=== PATIENT | female | born 1950 | race African-American/Black ===

== ENCOUNTER → 2017-07-22 | Outpatient (CLI) | payer MEDICARE ==
--- NOTE | 2017-07-22 13:53 | US ---
EXAMINATION TYPE: US venous doppler duplex LE LT DATE OF EXAM: 07/22/2017 1:36 PM COMPARISON: NONE CLINICAL HISTORY: 66-year-old female M79.662 PAIN OF LT CALF, S80.12XA CONTUSION OF LT LOWER LEG. Juan Carlos stokes stated is unaware of trauma to left leg; sciatica per patient SIDE PERFORMED: Left TECHNIQUE: The lower extremity deep venous system is examined utilizing real time linear array sonog priyanka with graded compression, doppler sonography and color-flow sonography. FINDINGS: VESSELS IMAGED: Common Femoral Vein Deep Femoral Vein Greater Saphenous Vein * Femoral Vein Popliteal Vein Small Saphenous Vein * Proximal Calf Veins (* superficial vessels) Left Leg: Negative for DVT IMPRESSION: No evidence for DVT within the left lower extremity.
== END | disposition home or self-care (01) ==
LOC: RADUSWWP 13:12
PROVIDERS: ATTEND Family Medicine
DX: S80.12XA Contusion of left lower leg, initial encounter (principal); R58 Hemorrhage, not elsewhere classified

== ENCOUNTER → 2017-08-10 | Outpatient (CLI) | payer MEDICARE ==
--- NOTE | 2017-08-11 09:10 | MR ---
EXAMINATION TYPE: MR lumbar spine wo/w con DATE OF EXAM: 08/10/2017 COMPARISON: NONE HISTORY: 66-year-old female with low back pain and radiculopathy Technique: Multiplanar, multisequence images of the lumbar spine were obtained before and after admin istration of 7.5 mL intravenous Gadavist gadolinium contrast. FINDINGS: Vertebral body heights are maintained. No suspicious bone marrow replacement. Conus medullaris is normal. No prevertebral or paravertebral soft tissue abnormality seen. Hypertrophic facet arthropathy mid to lower lumbar spine with ligamentum flavum thickening. There is a grade 1 anterolisthesis at L3-L4. Variable mild disc desiccation throughout and bulging discs especially from L3 through S1 levels. At T12-L1, minimal disc bulge without canal or foraminal stenosis. At L1-L2, no significant canal or foraminal stenosis. At L2-L3, no significant canal or foraminal stenosis. At L3-L4, hypertrophic facet arthropathy with ligamentum flavum thickening, grade 1 anterolisthesis, diffuse disc bulge. Changes result in moderate spinal canal stenosis, minimal right common mild-to-mo derate left neuroforaminal stenosis. At L4-L5, there is diffuse disc bulge with ligamentum flavum thickening and facet arthropathy. Change s result in mild spinal canal stenosis with moderate left and yswu-zi-[id number] right neuroforaminal s tenosis. At L5-S1, there is facet degenerative change and bulging disc. No significant spinal canal stenosis. Changes result in mild left neuroforaminal stenosis with disc material appears to impinge the meagan ing left S1 nerve root, sagittal image 6 and axial images 2 and 3. No abnormal enhancement within the spinal canal. IMPRESSION: 1. Hypertrophic facet arthropathy mid to lower lumbar spine with grade 1 anterolisthesis at L3-L4. 2. Mild to moderate degenerative disc disease along with ligamentum flavum thickening especially from L3 through S1 levels. 3. Disc bulge compresses/impinges the traversing left S1 nerve root at the L5-S1 level. Correlate for appropriate radicular symptoms. Mild left neural foraminal stenosis at this level. 4. Bulging disc, grade 1 anterolisthesis, ligamentum flavum thickening, and facet arthropathy resulti ng in moderate spinal canal stenosis at L3-L4. Mild to moderate left neuroforaminal stenosis at this level. 5. At L4-L5, changes result in mild spinal canal stenosis with moderate left and otlf-bh-[id number] rig ht neuroforaminal stenosis.
== END | disposition home or self-care (01) ==
LOC: RADMRIMAIN 12:50
PROVIDERS: ATTEND Orthopaedic Surgery Orthopaedic Surgery of the Spine
DX: M48.061 Spinal stenosis, lumbar region without neurogenic claudication (principal); M99.73 Connective tissue and disc stenosis of intervertebral foramina of lumbar region; M43.16 Spondylolisthesis, lumbar region; M51.17 Intervertebral disc disorders with radiculopathy, lumbosacral region; M46.96 Unspecified inflammatory spondylopathy, lumbar region
CPT/HCPCS: 82565; 84520; 72158; 36415; A9581

== ENCOUNTER → 2018-10-18 | Outpatient (CLI) | payer MEDICARE ==
--- NOTE | 2018-10-18 11:32 | MM ---
Reason for exam: follow-up at short interval from prior study. Last mammogram was performed 5 months ago. History: Patient is postmenopausal, has history of breast cancer at age 60, has history of other cancer at age 42, and is nulliparous. Excisional biopsy of the right breast, May 2018. Mastectomy of the left breast, 2011. Physical Findings: Nurse did not find any significant physical abnormalities on exam. MG 3D Diag Mammo W/Cad RT CC and MLO view(s) were taken of the right breast. Prior study comparison: May 08, 2018, mammogram. April 26, 2018, mammogram. April 05, 2018, mammogram. April 18, 2017, mammogram. The breast tissue is heterogeneously dense. This may lower the sensitivity of mammography. Benign calcifications in the right breast. No suspicious abnormality. Post biopsy change on the right. These results were verbally communicated with the patient and result sheet given to the patient on 10/18/18. ASSESSMENT: Benign, BI-RAD 2 RECOMMENDATION: Routine screening mammogram of the right breast in 1 year.
== END | disposition home or self-care (01) ==
LOC: RADMAMWWP 10:21
PROVIDERS: ATTEND Surgery
DX: R92.8 Other abnormal and inconclusive findings on diagnostic imaging of breast (principal)
CPT/HCPCS: 77065; G0279; 77061

== ENCOUNTER → 2018-11-21 | Outpatient (CLI) | payer MEDICARE ==
--- NOTE | 2018-11-21 13:43 | BD ---
EXAMINATION TYPE: Axial Bone Density DATE OF EXAM: 11/21/2018 COMPARISON: NONE CLINICAL HISTORY: 68 YR OLD FEMALE....ICD-10 CODE: Z13.820 OSTEOPOROSIS Postmenopausal female. Height: 62.4 Weight: 184 FRAX RISK QUESTIONS: Secondary Osteoporosis: YES 3. Menopause before 45: YES RISK FACTORS HISTORY OF: Active: PT WORKS Postmenopausal woman: YES, ABOUT 46 YRS OLD...TOTAL HYST Take estrogen and/or progesterone medications: PREMARIN FOR ABOUT 3 YRS MEDICATIONS: Additional Medications: METFORMIN ,STATIN ,LISINOPRIL, MULTIVITAMIN, ASPIRIN Additional History: OVARIAN CA, NO CHEMO OR RADIATION,DIABETIC, CHOLESTEROL. EXAM MEASUREMENTS: Bone mineral densitometry was performed using the [employer] System. Bone mineral density as measured about the Lumbar spine is: ----- L1-L4(G/cm2): 1.184 T Score Values are as follows: ----- L1: -1.3 ----- L2: -1.3 ----- L3: 0.9 ----- L4: 1.4 ----- L1-L4: 0.0 Bone mineral density FIRST DEXA SCAN......BASELINE STUDY Bone mineral density about the R hip (g/cm2): 0.977 Bone mineral density about the L hip (g/cm2): 0.982 T Score values are as follows: -----R Neck: -0.3 -----L Neck: -0.5 -----R Total: -0.3 -----L Total: -0.2 Bone mineral density BASELINE STUDY FRAX%s: THERE IS A 3.1% CHANCE FOR A MAJOR OSTEOPOROTIC FX AND A 0.2% FOR HIP.....PROBABILITY FOR FX IN 10 YRS TIME IMPRESSION: Normal (Values between +1 and -1 indicate normal bone mass). Consider repeating this study in 5 year s or sooner if there is some new clinical indication. NOTE: T-SCORE=SD OF THE YOUNG ADULT MEAN.
== END | disposition home or self-care (01) ==
LOC: RADBDWWP 12:28
PROVIDERS: ATTEND Family Medicine
DX: M89.9 Disorder of bone, unspecified (principal)
CPT/HCPCS: 77080

== ENCOUNTER 2019-01-22 12:00 | Day surgery (SDC) | payer MEDICARE ==
[2019-01-18 17:43] VITALS: BMI 32.4
[~2019-01-22 12:00] MED LIST: LIDOCAINE 1% 20 ML VIAL (10MG/ML) FOR IV START INTRADERMA PRN
[2019-01-22 13:16] VITALS: RESP 16; TEMP 97.7
[2019-01-22] MEDS: LACTATED RINGERS 1,000 ML IV SCH ×2 (13:23→14:24)
[2019-01-22 13:26] LABS: Glucose,Whole Blood 104 mg/dL (75-99)
[2019-01-22] MEDS ORDERED: MIDAZOLAM 2 MG/2 ML VIAL ONE (14:24)
[2019-01-22] MEDS ORDERED: fentaNYL (PF) 50 MCG/ML 2 ML AMP ONE (14:24)
[2019-01-22] MEDS ORDERED: PROPOFOL 10 MG/ML 20 ML VIAL IV ONE (14:24)
--- NOTE | 2019-01-22 14:42 | P.GSHP ---
History of Present Illness H&P Date: 01/22/19 Chief Complaint: Colon polyp, screening 68-year-old female known to our service. Last colonoscopy 5 years ago. Patient with history of adenomatous polyps. No bowel related complaints. Personal history of breast cancer. Past Medical History Past Medical History: Cancer, Diabetes Mellitus, Hyperlipidemia, Hypertension Additional Past Medical History / Comment(s): hx. ovarian cancer early , left breast cancer 2011, hx. colon polyps History of Any Multi-Drug Resistant Organisms: None Reported Past Surgical History: Breast Surgery, Hysterectomy Additional Past Surgical History / Comment(s): left breast mastectomy, breast biopsies right, colonoscopy Past Anesthesia/Blood Transfusion Reactions: No Reported Reaction Smoking Status: Former smoker - Past Family History Mother Family Medical History: No Reported History Medications and Allergies Home Medications Medication Instructions Recorded Confirmed Type Aspirin 81 mg PO DAILY 01/18/19 01/18/19 History Lisinopril [Zestril] 20 mg PO DAILY 01/18/19 01/18/19 History Multivit-Min/FA/Lycopen/Lutein 1 each PO DAILY 01/18/19 01/18/19 History [Centrum Silver Tablet] Pravastatin Sodium [Pravachol] 20 mg PO DAILY 01/18/19 01/22/19 History metFORMIN HCL [Glucophage] 500 mg PO BID 01/18/19 01/22/19 History Allergies Allergy/AdvReac Type Severity Reaction Status Date / Time Sulfa (Sulfonamide Allergy Itching Verified 01/22/19 13:07 Antibiotics) Surgical - Exam Vital Signs Temp Pulse Resp BP Pulse Ox 97.7 F 83 16 163/81 99 01/22/19 13:10 01/22/19 13:10 01/22/19 13:10 01/22/19 13:10 01/22/19 13:10 Physical exam: General: Well-developed, well-nourished HEENT: Normocephalic, sclerae nonicteric Abdomen: Nontender, nondistended Extremities: No edema Neuro: Alert and oriented Results - Labs Abnormal Lab Results - Last 24 Hours (Table) 01/22/19 Range/Units 13:19 POC Glucose (mg/dL) 104 H (75-99) mg/dL Assessment and Plan (1) Colon cancer screening Narrative/Plan: Will proceed with colonoscopy at this time Current Visit: Yes Status: Acute Code(s): Z12.11 - ENCOUNTER FOR SCREENING FOR MALIGNANT NEOPLASM OF COLON SNOMED Code(s): 182482876
--- NOTE | 2019-01-22 14:55 | P.PCN ---
Date of Procedure: 01/22/19 Procedure(s) Performed: PREOPERATIVE DIAGNOSIS: Colon cancer screening POSTOPERATIVE DIAGNOSIS: Diverticulosis PROCEDURE: Colonoscopy ANESTHESIA: MAC SURGEON: Eliecer Rubio M.D. SPECIMENS: None ENDOSCOPIC PROCEDURE: The patient was placed on the endoscopy table in the left decubitus position. The Olympus colonoscope was inserted into the anus and passed under direct visualization to the base of the cecum. The appendiceal orifice was visualized. From that point the scope was slowly withdrawn inspe cting all surfaces carefully. There were no neoplastic inflammatory or polypoid lesions throughout the cecum, ascending, transverse, descending, sigmoid and rectum. There was mild left-sided diverticulosis noted. Digital rectal examination was normal. The patient was taken to the recovery room in stable condition per anesthesia guidelines. RECOMMENDATIONS: Increase fiber. Follow-up colonoscopy 5 years.
[2019-01-22 15:18] VITALS: BP 113/71; PULSE 71
== END 2019-01-22 15:34 | disposition home or self-care (01) ==
LOC: ORWHC2ENDO 12:00
PROVIDERS: ATTEND Surgery
DX: Z12.11 Encounter for screening for malignant neoplasm of colon (principal); K57.30 Diverticulosis of large intestine without perforation or abscess without bleeding; Z86.010 Personal history of colon polyps; I10 Essential (primary) hypertension; E78.5 Hyperlipidemia, unspecified; E11.9 Type 2 diabetes mellitus without complications; Z85.3 Personal history of malignant neoplasm of breast; Z85.43 Personal history of malignant neoplasm of ovary; Z90.12 Acquired absence of left breast and nipple; Z87.891 Personal history of nicotine dependence; Z79.84 Long term (current) use of oral hypoglycemic drugs; Z79.82 Long term (current) use of aspirin; Z79.899 Other long term (current) drug therapy; Z88.2 Allergy status to sulfonamides
CPT/HCPCS: J2250; J3010; J2704; G0105

== ENCOUNTER → 2020-06-30 | Outpatient (CLI) | payer MEDICARE ==
--- NOTE | 2020-06-30 13:51 | MM ---
Reason for exam: additional evaluation requested from prior study. Last mammogram was performed 1 year and 8 months ago. History: Patient is postmenopausal, has history of breast cancer at age 60, has history of ovarian cancer at age 42, and is nulliparous. Family history of breast cancer in sister and breast cancer in paternal aunt. Excisional biopsy of the right breast, May 2018. Mastectomy of the left breast, 2011. Physical Findings: Nurse did not find any significant physical abnormalities on exam. MG 3D Diag Mammo W/Cad RT CC and MLO view(s) were taken of the right breast. Prior study comparison: October 18, 2018, right breast MG 3d diag mammo w/cad RT. May 08, 2018, mammogram. The breast tissue is heterogeneously dense. This may lower the sensitivity of mammography. Post surgical distortion is unchanged, best seen on 3D images. No persisting abnormality on 3D images. Regional calcifications medial right breast are unchanged. No significant new findings when compared with previous films. These results were verbally communicated with the patient and result sheet given to the patient on 06/30/20. ASSESSMENT: Benign, BI-RAD 2 RECOMMENDATION: Follow-up diagnostic mammogram of the right breast in 1 year.
== END | disposition home or self-care (01) ==
LOC: RADMAMWWP 12:49
PROVIDERS: ATTEND Family Medicine
DX: Z08 Encounter for follow-up examination after completed treatment for malignant neoplasm (principal); Z85.3 Personal history of malignant neoplasm of breast
CPT/HCPCS: 77065; G0279; 77061

== ENCOUNTER → 2021-07-29 | Outpatient (CLI) | payer MEDICARE ==
--- NOTE | 2021-07-29 11:30 | MM ---
Reason for exam: additional evaluation requested from prior study. Last mammogram was performed 1 year and 1 month ago. History: Patient is postmenopausal, has history of breast cancer at age 60, has history of ovarian cancer at age 42, and is nulliparous. Family history of breast cancer in sister and breast cancer in paternal aunt at age 50. Excisional biopsy of the right breast, May 2018. Mastectomy of the left breast, 2011. Took estrogen for 5 months beginning at age 42. Physical Findings: Nurse did not find any significant physical abnormalities on exam. MG 3D Diag Mammo W/Cad RT CC and MLO view(s) were taken of the right breast. Prior study comparison: June 30, 2020, right breast MG 3d diag mammo w/cad RT. October 18, 2018, right breast MG 3d diag mammo w/cad RT. The breast tissue is heterogeneously dense. This may lower the sensitivity of mammography. Finding: There are typically benign round, diffuse/scattered calcifications in the right breast. Previous mammotome biopsy in the right breast. Post biopsy changes right breast. No significant changes in finding since June 30, 2020 and October 18, 2018. These results were verbally communicated with the patient and result sheet given to the patient on 07/29/21. ASSESSMENT: Benign, BI-RAD 2 RECOMMENDATION: Follow-up diagnostic mammogram of the right breast in 1 year.
== END | disposition home or self-care (01) ==
LOC: RADMAMWWP 10:15
PROVIDERS: ATTEND Family Medicine
DX: R92.8 Other abnormal and inconclusive findings on diagnostic imaging of breast (principal); Z85.3 Personal history of malignant neoplasm of breast; Z90.12 Acquired absence of left breast and nipple; Z78.0 Asymptomatic menopausal state; Z85.43 Personal history of malignant neoplasm of ovary; Z80.3 Family history of malignant neoplasm of breast
CPT/HCPCS: 77065; G0279; 77061

== ENCOUNTER → 2021-09-18 | Outpatient (CLI) | payer MEDICARE ==
--- NOTE | 2021-09-19 07:50 | US ---
EXAMINATION TYPE: US kidneys/renal and bladder DATE OF EXAM: 09/18/2021 COMPARISON: NONE CLINICAL HISTORY: R82.90 abnormal urinalysis,R31.29 Microscopic hematuria. Abnormal urinalysis. Micro scopic hematuria. EXAM MEASUREMENTS: Right Kidney: 10.1 x 5.2 x 3.3 cm Left Kidney: 10.2 x 4.9 x 4.7 cm Right Kidney: Hyperechoic focus seen lower pole: 0.4 x 0.4 x 0.3 cm. Collecting system appears to be dilated- anechoic connecting appearance seen. Left Kidney: Anechoic area seen at mid: 1.1 x 1.2 x 1.0 cm. Bladder: Appears anechoic. Bilateral Jets seen: Yes IMPRESSION: 1. Mild right-sided hydronephrosis suggested with nephrolithiasis.
== END | disposition home or self-care (01) ==
LOC: RADUSWWP 15:39
PROVIDERS: ATTEND Family Medicine
DX: N20.0 Calculus of kidney (principal)
CPT/HCPCS: 76770

== ENCOUNTER → 2022-03-17 | Outpatient (CLI) | payer MEDICARE ==
[2022-03-17 16:11] LABS: Partial Thromboplastin Time 26.5 sec (22.0-30.0); Prothrombin Time 10.5 sec (9.0-12.0)
[2022-03-17 22:28] LABS: HCT 42.5 % (37.2-46.3); HGB 13.3 g/dL (12.0-15.0); MCHC 31.3 g/dL (32.0-37.0); MCV 89.5 fL (80.0-97.0); Mean Platelet Volume 12.3 fL (9.5-12.2); NRBC Per 100 WBC 0 /100 WBCS (0.0-0.0); Platelet Count 253 X 10*3/uL (140-440); RBC 4.75 X 10*6/uL (4.10-5.20); RDW 14.1 % (11.5-14.5); WBC 8.15 X 10*3/uL (4.50-10.00)
[2022-03-17 22:46] LABS: African American GFR (CKD) 102.5 (60.0-200.0); Albumin 4.5 g/dL (3.8-4.9); Albumin/Globulin Ratio 1.61 (1.60-3.17); Anion Gap 9.7 mmol/L (10.00-18.00); BUN/Creat Ratio 19.86 Ratio (12.00-20.00); Blood Urea Nitrogen 13.9 mg/dL (9.0-27.0); Calcium 10.2 mg/dL (8.7-10.3); Carbon Dioxide 29.3 mmol/L (20.0-27.5); Globulin 2.8 g/dL (1.6-3.3); Non-African American GFR(CKD) 88.4 (60.0-200.0); Potassium 4.1 mmol/L (3.5-5.5); Total Bilirubin 0.2 mg/dL (0.30-1.20); Total Protein 7.3 g/dL (6.2-8.2)
[2022-03-17 23:01] LABS: Amorphous Sediment,Urine Present /LPF (None Seen); Appearance,Urine Turbid (Clear); Bacteria,Urine None Seen /HPF (None Seen); Bilirubin,Urine Negative (Negative); Blood,Urine Negative (Negative); Calcium Oxalate Crystals,Urine Present /LPF (None Seen); Color,Urine Yellow (Yellow); Ketones,Urine Negative (Negative); Nitrite,Urine Negative (Negative); Specific Gravity,Urine 1.024 (1.001-1.030)
== END | disposition home or self-care (01) ==
LOC: LABPAT 15:17
PROVIDERS: ATTEND Orthopaedic Surgery
DX: Z01.812 Encounter for preprocedural laboratory examination (principal); M17.11 Unilateral primary osteoarthritis, right knee
CPT/HCPCS: 80053; 81001; 85027; 85610; 85730; 87070

== ENCOUNTER 2022-04-05 05:34 | Day surgery (SDC) | payer MEDICARE ==
[~2022-04-05 05:34] MED LIST changes: +ACETAMINOPHEN TAB 500 MG TAB PO PRN; +GABAPENTIN 300 MG CAP PO PRN; -LIDOCAINE 1% 20 ML VIAL (10MG/ML) FOR IV START INTRADERMA PRN; +MELOXICAM 7.5 MG TAB PO PRN; +TRANEXAMIC ACID IN NACL,ISO-OS 1,000 MG in SALINE 1 100ML.BAG IVPB PRN
[2022-04-05] MEDS ORDERED: ONDANSETRON 4 MG/2 ML VIAL ONE (06:01)
[2022-04-05] MEDS ORDERED: DEXAMETHASONE SOD PHOSPHATE 4 MG/ML 1 ML VIAL IVP ONE (06:20)
[2022-04-05 06:23] LABS: Glucose,Whole Blood 110 mg/dL (70-110)
[2022-04-05] MEDS ORDERED: LACTATED RINGERS 1,000 ML IV ONE ×2 (06:25→08:44)
[2022-04-05] MEDS ORDERED: MIDAZOLAM 2 MG/2 ML VIAL IVP ONE (06:38)
[2022-04-05] MEDS ORDERED: PHENYLEPHRINE-0.9% NACL SYG 1,000 MCG/10 ML SYRINGE ONE (06:54)
[2022-04-05] MEDS ORDERED: PROPOFOL 10 MG/ML 20 ML VIAL IV ONE (06:54)
[2022-04-05] MEDS ORDERED: fentaNYL (PF) 50 MCG/ML 2 ML AMP ONE (06:54)
[2022-04-05] MEDS ORDERED: SODIUM CHLORIDE 0.9% (PF) 10 ML VIAL ONE (06:54)
[2022-04-05] MEDS ORDERED: ROPIVACAINE 5 MG/ML 30 ML VIAL ONE (06:54)
[2022-04-05] MEDS ORDERED: TRANEXAMIC ACID IN NACL,ISO-OS 1,000 MG/100 ML BAG ONE (06:54)
--- NOTE | 2022-04-05 08:07 | P.ANPRN ---
Procedure Note - Anesthesia - Nerve Block Performed Right Adductor Canal Infusion Time Out Performed: Yes (636) Date of Procedure: 04/05/22 Procedure Start Time: 06:40 Procedure Stop Time: :52 Location of Patient: PreOp Indication: Acute Post-Operative Pain, Requested by Surgeon Sedation Type: Sedate with meaningful contact maintained Preparation: Sterile Prep, Sterile Dressing Position: Supine Catheter: Indwelling Needle Types: On-Q Needle Gauge: 18 Ultrasound used to visualize needle placement: Yes Ultrasound used to observe medication spread: Yes Injectate: Other (see comment) (20 mL of block solution injected with intermittent negative aspiration. Block solution containing 10 ML of 0.5% ropivacaine mixed with 10 ML of preservative-free normal saline) Narrative: 5 ml of block solution injected after negative aspiration after the catheter in place under ultrasound guidance. Blood Aspirated: No Pain Paresthesia on Injection Noted: No Resistance on Injection: Normal Image Stored and Saved: Yes Events: Uneventful and Well Tolerated Right iPack Infusion Time Out Performed: Yes (636) Date of Procedure: 04/05/22 Procedure Start Time: :40 Procedure Stop Time: 06:52 Location of Patient: PreOp Indication: Acute Post-Operative Pain, Requested by Surgeon Sedation Type: Sedate with meaningful contact maintained Preparation: Sterile Prep, Sterile Dressing Position: Supine Catheter: None Needle Types: Pajunk Needle Gauge: 21 Ultrasound used to visualize needle placement: Yes Ultrasound used to observe medication spread: Yes Injectate: 0.5% Ropivacaine (see comment for volume) (20 mL of block solution injected with intermittent negative aspiration. Block solution containing 10 ML of 0.5% ropivacaine mixed with 10 ML of preservative-free normal saline) Blood Aspirated: No Pain Paresthesia on Injection Noted: No Resistance on Injection: Normal Image Stored and Saved: Yes Events: Uneventful and Well Tolerated
--- NOTE | 2022-04-05 08:21 | P.OP ---
Date of Procedure: 04/05/22 Preoperative Diagnosis: Severe osteoarthritis right knee Postoperative Diagnosis: Severe osteoarthritis right knee Procedure(s) Performed: Right total knee arthroplasty Implants: López [employer]hew Journey II CR Oxinium cruciate retaining femoral component size 4, right Ló[employer] Journey nonporous tibial baseplate size 3, right [employer] Journey II, XLPE Deep Dished articular insert, size 12 mm, Size 3-4, right Ló[employer] Journey Gale II resurfacing patellar component, oval, 29 mm All components were cemented using Palacos R bone cement The articulation is Oxinium on polyethylene Anesthesia: spinal Surgeon: Tolu Bustamante Nuclear Medicine Tech #1: Kim Atkins Estimated Blood Loss (ml): 25 Pathology: other (Bone and cartilage) Condition: stable Disposition: PACU Indications for Procedure: After failure of conservative treatment we discussed the surgical and nonsurgical treatment options at length. Patient wishes to proceed with a total knee arthroplasty. Complications specific to this procedure were discussed at length, including but not limited to infection, bleeding, stiffness, and nerve injury. Covid-19 was also discussed at length with the patient, and they are aware of the current policies and procedures. The patient was given the option of delaying surgery, but they elect to proceed knowing these risks. Patient is aware of all these complications and informed consent was obtained Operative Findings: The operative findings are consistent with severe osteoarthritis of the right knee Description of Procedure: Patient was seen in the preoperative area and the consent was reviewed and the operative site was marked with a skin marker. The patient verified the procedure and the operative site. An adductor canal pain catheter and an iPACK block was placed by anesthesia in the preoperative area. The patient was then brought to the operating room and given preoperative antibiotics intravenously. A gram of transexamic acid was given intravenously. A spinal anesthetic was administered by the anesthesia department. A tourniquet was placed on the upper thigh and the lower extremity was prepped with chlorhexidine and draped in usual sterile fashion. A universal timeout was then performed which confirmed the patient's name, surgical site, ALLERGIES, and consent. The lower extremity was then exsanguinated and tourniquet was inflated to 250 mmHg. A standard anterior midline approach to the knee was performed. The skin and subcutaneous tissue were sharply dissected down to the patellar tendon. A medial parapatellar arthrotomy was then performed. The knee was then extended, the patellar was everted, and the knee was again flexed. The infra-patellar fat pad was removed in order to enhance exposure. The anterior horns of both menisci were excised, and a release was performed to the posterior medial aspect of the knee. On gross visual inspection, there was complete loss of articular cartilage in the medial and patellofemoral joint spaces. There was also significant cartilage damage in the lateral compartment. There were multiple periarticular osteophytes globally about the knee which were then removed with a Ronguer. The femoral canal was then opened with the 9.5 mm intramedullary drill. The 8 mm intramedullary yi was then inserted into the femoral canal with the distal femoral cutting guide set for 5 of valgus. The distal femoral cutting block was then pinned in place. The intramedullary yi was then removed, and the distal femur was then cut. The cutting block was then removed and the cut was checked for symmetry. The resected bone was then measured to confirm the appropriate distal femoral resection. Next, the sizing guide was then placed and set for 3 external rotation based off of the epicondylar axis and Whitesides line. Pins were then placed and the drill holes, and the femur was sized with the sizing stylus. The pins were then removed, and the sizing guide was then removed. The spikes of the femoral block was then placed into the predrilled holes, and malleted into place. Two 45 mm pins were then placed into the fixation holes on the cutting block. An danitza wing was then used to ensure there would be no notching with the anterior cut. The anterior condyles were cut without notching. The anterior chord cut was then performed, followed by the posterior cut, posterior chamfer cut, and the anterior chamfer cut. The collateral ligaments were protected during the entire process. The cutting block was then removed. Any remaining bone and osteophytes were removed from the femur with a Ronguer. The femoral canal was plugged with autologous bone. Attention was then directed to the tibia. The remaining ACL was removed with a Ronguer, and the tibia was then gently subluxed forward with a large bent knee retractor. Any remaining menisci were excised. The posterior lateral corner was cauterized in order to coagulate the lateral geniculate artery. The extra medullary tibial cutting guide was then placed, set for the appropriate rotation, slope, and depth of resection. The proximal tibia cutting guide was then pinned in place. Proximal tibia was then cut and sized. The femoral trial was placed. A narrow saw blade was then used to remove the anterior intracondylar femoral bone. The CR notch trial was then placed. The tibial trial was placed with the appropriate-sized insert. The knee was able to fully extend and flex to 130 and was stable throughout all range of motion. The knee was then extended and the patella was everted. Patella was then measured, and then using an osteotomy guide, the patella was cut at the appropriate level. The patella was then measured and drilled and the patella trial was then placed. The knee was then taken through range of motion with the patella trial and the patella tracked normally using the no thumbs technique. The knee was then extended patella trial was then removed and the patella was everted. Knee was then flexed and lug holes were drilled through the femoral trial and the femoral trial was then removed. The tibial was then re-exposed, and the tibial broach guide was then pinned in place after it was set for the appropriate rotation to allow for the most coverage without overhang. The tibia was then reamed and broached. The cut surfaces of bone were then irrigated with pulsatile lavage. The knee was also irrigated with Irrisept solution. The components were then opened, the cement was mixed, and the components were then cemented in place. The cement wa s allowed to harden with the knee in full extension. After the cemented hardened, the tourniquet was released and hemostasis was obtained. A second gram of transexamic acid was given intravenously. The knee was again irrigated. The knee was again taken through range of motion and found to be stable throughout all range of motion of 0-130, and the patella tracked normally. The fascia was then closed with 0 Vicryl followed by #2 strata fix suture. The subcutaneous tissue was closed with 3-0 Vicryl and 3-0 strata fix. Exofin glue was used for the skin and placed with the knee in flexion. After the glue had dried, and Optafoam silver impregnated dressing was applied. The patient was then transferred to recovery room in stable condition. The pastry assistant SUKHWINDER Story was required due the complexity surgery and the need for a skilled surgical services coordinator. She assisted in positioning, draping, retraction, and closure of the wound.
[2022-04-05] MEDS ORDERED: NALOXONE 0.4 MG/ML 1 ML VIAL IV PRN (09:15)
[2022-04-05] MEDS ORDERED: ONDANSETRON 4 MG/2 ML VIAL IVP PRN (09:15)
[2022-04-05] MEDS ORDERED: bisacodyL 10 MG SUPP RECTAL PRN (09:15)
[2022-04-05] MEDS ORDERED: MAGNESIUM HYDROXIDE 2,400 MG/10 ML CUP PO PRN (09:15)
[2022-04-05] MEDS ORDERED: HYDROmorphone 0.5 MG/0.5 ML SYRINGE IVP PRN ×3 (09:15)
[2022-04-05] MEDS ORDERED: NA PHOS,M-B/NA PHOS,DI-BA 133 ML ENEMA RECTAL PRN (09:15)
[2022-04-05] MEDS ORDERED: ROPIVACAINE 1,100 MG, SODIUM CHLORIDE 0.9% 500 ML 330 ML, EMPTY PAIN BALL 1 EACH MISCELLANE PRN ×2 (09:17)
[2022-04-05] MEDS ORDERED: HYDROcodone/APAP 7.5-325MG 1 EACH TAB PO PRN (09:17)
--- NOTE | 2022-04-05 09:24 | XR ---
EXAMINATION TYPE: XR knee limited RT DATE OF EXAM: 04/05/2022 COMPARISON: NONE TECHNIQUE: Two views submitted HISTORY: Post op FINDINGS: There is a prosthetic knee in near anatomic alignment. There is soft tissue edema and emphysema. IMPRESSION: 1. Postoperative change. Appears in near-anatomic alignment
[2022-04-05 11:24] LABS: Glucose,Whole Blood 166 mg/dL (70-110)
[2022-04-05] MEDS: SODIUM CHLORIDE 0.9% 1,000 ML IV SCH (11:49)
[2022-04-05] MEDS: HYDROcodone/APAP 7.5-325MG 1 EACH TAB PO PRN ×2 (13:55→21:00)
--- NOTE | 2022-04-05 16:12 | P.CONS ---
History of Present Illness - History of Present Illness this is a pleasant 71 females who was admitted for right hip total arthroplasty for sever osteoarthritis , she is post op day # 0 , she is comfortable and denies any chest pain or dyspnea , no abdominal pain , no urinary complaint, no fever BP 111/69, rest of vitalas are stable , no labs from today ,glu controled Review of Systems CONSTITUTIONAL: No fever, no malaise, no fatigue. HEENT: No recent visual problems or hearing problems. Denied any sore throat. CARDIOVASCULAR: No orthopnea, PND, no palpitations, no syncope. PULMONARY: No shortness of breath, no cough, no hemoptysis. GASTROINTESTINAL: No diarrhea, no nausea, no vomiting, no abdominal pain. Normoactive bowel sounds. NEUROLOGICAL: No headaches, no weakness, no numbness. HEMATOLOGICAL: Denies any bleeding or petechiae. GENITOURINARY: Denies any burning micturition, frequency, or urgency. MUSCULOSKELETAL/RHEUMATOLOGICAL: Denies any joint pain, swelling, or any muscle pain. ENDOCRINE: Denies any polyuria or polydipsia. . Past Medical History Past Medical History: Cancer, Diabetes Mellitus, Hyperlipidemia, Hypertension Additional Past Medical History / Comment(s): hx. ovarian cancer early , left breast cancer 2011, hx. colon polyps History of Any Multi-Drug Resistant Organisms: None Reported Past Surgical History: Breast Surgery, Hysterectomy Additional Past Surgical History / Comment(s): left breast mastectomy, breast biopsies right, colonoscopy Past Anesthesia/Blood Transfusion Reactions: No Reported Reaction Past Psychological History: No Psychological Hx Reported Smoking Status: Former smoker Past Alcohol Use History: None Reported Additional Past Alcohol Use History / Comment(s): quit smoking 30 yrs. ago, 1ppk every 3 days Past Drug Use History: None Reported - Past Family History Mother Family Medical History: Cancer Additional Family Medical History / Comment(s): breast Father Family Medical History: Cancer Additional Family Medical History / Comment(s): lung Brother(s) Family Medical History: Cancer Additional Family Medical History / Comment(s): throat Sister(s) Family Medical History: Cancer Additional Family Medical History / Comment(s): breast Medications and Allergies Home Medications Medication Instructions Recorded Confirmed Type Aspirin 81 mg PO DAILY 01/18/19 04/05/22 History Multivit-Min/FA/Lycopen/Lutein 1 each PO DAILY 01/18/19 04/05/22 History [Centrum Silver Tablet] lisinopriL [Zestril] 20 mg PO DAILY 01/18/19 04/05/22 History metFORMIN HCL [Glucophage] 500 mg PO BID 01/18/19 04/05/22 History Atorvastatin [Lipitor] 40 mg PO HS 03/31/22 04/05/22 History Metoprolol Succinate [Metoprolol 25 mg PO DAILY 03/31/22 04/05/22 History Succinate ER] Aspirin 325 mg PO BID #60 tab 04/05/22 Rx HYDROcodone/APAP 7.5-325MG [[place] 1 - 2 tab PO Q6H PRN #32 tab 04/05/22 Rx 7.5-325] Sennosides [Senokot] 2 tab PO DAILY PRN #60 tablet 04/05/22 Rx Allergies Allergy/AdvReac Type Severity Reaction Status Date / Time Sulfa (Sulfonamide Allergy Itching Verified 04/05/22 06:06 Antibiotics) Physical Exam Vitals: Vital Signs Temp Pulse Pulse Pulse Resp BP BP 04/05/22 13:00 97.7 F 73 14 111/69 04/05/22 12:25 73 121/68 04/05/22 11:55 69 104/58 04/05/22 11:40 67 123/73 04/05/22 11:25 83 113/80 04/05/22 11:10 74 116/75 04/05/22 10:55 72 139/69 04/05/22 10:03 52 L 16 127/60 04/05/22 09:48 54 L 16 129/57 04/05/22 09:33 55 L 16 123/59 04/05/22 09:18 50 L 16 115/63 04/05/22 09:03 52 L 16 102/60 04/05/22 08:48 98.0 F 65 16 99/56 04/05/22 06:58 82 16 165/75 04/05/22 06:20 97.8 F 78 16 170/74 Pulse Ox 04/05/22 13:00 99 04/05/22 12:25 96 04/05/22 11:55 95 04/05/22 11:40 93 L 04/05/22 11:25 95 04/05/22 11:10 94 L 04/05/22 10:55 96 04/05/22 10:03 96 04/05/22 09:48 96 04/05/22 09:33 97 04/05/22 09:18 100 04/05/22 09:03 100 04/05/22 08:48 98 04/05/22 06:58 95 04/05/22 06:20 93 L Intake and Output 04/05/22 04/05/22 04/05/22 06:59 14:59 22:59 Intake Total 100 1500 Output Total 25 Balance 100 1475 Intake: IV 100 1500 Output: Estimated Blood Loss 25 Other: Weight 79.9 kg 79.9 kg GENERAL: The patient is alert and oriented x3, not in any acute distress. Well developed, well nourished. HEENT: Pupils are round and equally reacting to light. EOMI. No scleral icterus. No conjunctival pallor. Normocephalic, atraumatic. No pharyngeal erythema. No thyromegaly. CARDIOVASCULAR: S1 and S2 present. No murmurs, rubs, or gallops. PULMONARY: Chest is clear to auscultation, no wheezing or crackles. ABDOMEN: Soft, nontender, nondistended, normoactive bowel sounds. No palpable organomegaly. MUSCULOSKELETAL: No joint swelling or deformity. right knee surgical wound in dressing ,rest of exam is deferred to surgery team EXTREMITIES: No cyanosis, clubbing, or pedal edema. NEUROLOGICAL: Gross neurological examination did not reveal any focal deficits. SKIN: No rashes. no petechiae Results Labs: Abnormal Lab Results - Last 24 Hours (Table) 04/05/22 Range/Units 11:23 POC Glucose (mg/dL) 166 H (70-110) mg/dL Assessment and Plan Assessment: sever osteoarthritis, status post right total hip arthroplasty Hypertension, no is normotensive post op which is excpected hyperlipidemia diabetes mellitus Plan: hold lisinopril and metoprolol while bp is borderline, and keep monitoring continue wiht normal saline check creatinine in am if not elevated , we may resume metforming with close monitoroing follow hemoglbin DVT prophylaxis and pain management is deferred to surgery team Labs and medication were reviewed.. Continue same treatment. Continue with symptomatic treatment. Resume home medication. Monitor lytes and vitals. DVT and GI prophylaxis. Further recommendations as per clinical course of the patient thank you for your consult
[2022-04-05 16:35] LABS: Glucose,Whole Blood 165 mg/dL (70-110)
[2022-04-05 19:40] LABS: Glucose,Whole Blood 221 mg/dL (70-110)
[2022-04-05] MEDS: ASPIRIN 325 MG TAB PO SCH (20:59)
[2022-04-05] MEDS ORDERED: SENNOSIDES-DOCUSATE SODIUM 1 EACH TAB PO SCH (21:00)
[2022-04-06] MEDS: SODIUM CHLORIDE 0.9% 1,000 ML IV SCH (00:34)
[2022-04-06] MEDS: HYDROcodone/APAP 7.5-325MG 1 EACH TAB PO PRN ×2 (02:18→08:20)
[2022-04-06 06:22] LABS: Glucose,Whole Blood 139 mg/dL (70-110)
--- NOTE | 2022-04-06 06:55 | P.PN ---
Progress Note - Text Progress Note Date: 04/06/22 patient was seen and evaluated at bedside. Status post postoperative day 1 for right side total knee arthroplasty patient had adductor canal catheter for postop pain control. Patient rated pain at rest 3 out of 10 in severity. Patient describes pain is aching, throbbing type on the sides of the knee and back of the knee. Patient started walking with support. With activity patient pain levels are 5-6 out of 10 in severity. With the help of oral pain medications pain levels are tolerable. Patient denied any weakness/ numbness in lower extremities. patient denied any fever, pain over the catheter site. Physical exam: Patient vital signs stable Patient is alert awake oriented 3 responding to all questions appropriately Examination of the catheter site showed dressing intact, no leaking fluid around the catheter, no redness, no tenderness over the catheter insertion area. plan: status post postoperative day 1 for right total knee arthroplasty with adductor canal catheter for pain control. Patient was discussed to continue the medication at current rate infusion until the pump is completely empty and instructed the patient how to discontinue the catheter.
[2022-04-06 07:33] VITALS: BP 123/72; PULSE 76; RESP 17; TEMP 98.9
[2022-04-06] MEDS ORDERED: FAMOTIDINE 20 MG/2 ML VIAL IV SCH (09:00)
--- NOTE | 2022-04-06 09:06 | P.DS ---
Providers Expected date of discharge: 04/06/22 Attending physician: Tolu Bustamante Consults: 04/05/22 09:15 Consult Physician Routine Consulting Provider: Maris Thomas Reason/Comments: medical management Do you want consulting provider notified?: Yes 04/06/22 00:01 Consult Physician Routine Consulting Provider: Maninder Box Reason/Comments: medical mx Do you want consulting provider notified?: Already Contacted Primary care physician: Maris Thomas - Discharge Diagnosis(es) (1) Osteoarthritis of right knee Current Visit: Yes Status: Acute (2) Status post total right knee replacement Current Visit: Yes Status: Acute Hospital Course: This is a 71-year-old female with known history of degenerative arthritis of the right knee. The patient presented for evaluation as an outpatient. After discussion and consideration patient elects to proceed with total knee arthroplasty. The patient is seen preoperatively by Dr. Bustamante and medically cleared for surgery by their primary care physician. Patient is admitted to [facility] on 04/05/2022 for total knee arthroplasty. The procedure is performed without complication or sequelae. The patient is doing well postoperatively. Labs and vital signs are stable on day of discharge. On day of discharge patient's knee incision is healing well. There is minimal erythema. There is no drainage noted at this time. There is minimal soft tissue swelling to the knee. Patient has full foot and ankle motion without difficulty or pain. Calf is soft and nontender to palpation. Neurovascular status to the right lower extremity is intact. Patient is discharged home in good condition. Please see med rec for accurate list of home medications. Plan - Discharge Summary Discharge Rx Participant: No New Discharge Prescriptions: New Sennosides [Senokot] 2 tab PO DAILY PRN #60 tablet PRN Reason: Constipation Aspirin 325 mg PO BID #60 tab HYDROcodone/APAP 7.5-325MG [[place] 7.5-325] 1 - 2 tab PO Q6H PRN #32 tab PRN Reason: Pain No Action metFORMIN HCL [Glucophage] 500 mg PO BID lisinopriL [Zestril] 20 mg PO DAILY Aspirin 81 mg PO DAILY Multivit-Min/FA/Lycopen/Lutein [Centrum Silver Tablet] 1 each PO DAILY Atorvastatin [Lipitor] 40 mg PO HS Metoprolol Succinate [Metoprolol Succinate ER] 25 mg PO DAILY Discharge Medication List Aspirin 81 mg PO DAILY 01/18/19 [History] Multivit-Min/FA/Lycopen/Lutein [Centrum Silver Tablet] 1 each PO DAILY 01/18/19 [History] lisinopriL [Zestril] 20 mg PO DAILY 01/18/19 [History] metFORMIN HCL [Glucophage] 500 mg PO BID 01/18/19 [History] Atorvastatin [Lipitor] 40 mg PO HS 03/31/22 [History] Metoprolol Succinate [Metoprolol Succinate ER] 25 mg PO DAILY 03/31/22 [History] Aspirin 325 mg PO BID #60 tab 04/05/22 [Rx] HYDROcodone/APAP 7.5-325MG [[place] 7.5-325] 1 - 2 tab PO Q6H PRN #32 tab 04/05/22 [Rx] Sennosides [Senokot] 2 tab PO DAILY PRN #60 tablet 04/05/22 [Rx] Follow up Appointment(s)/Referral(s): Tolu Bustamante DO [Doctor of Osteopathic Medicine] - 2 Weeks Activity/Diet/Wound Care/Special Instructions: Weightbearing as tolerated with a walker. CPM 5-6h daily as tolerated. Leave dressing intact. Dressing may be removed by home care nurse or by patient in 7 days. Then change dressing twice daily until follow up. May shower with initial dressing intact and after removal. If dressing become saturated, please remove. Recommend use of compression stockings daily until follow up to help prevent swelling and blood clots. May remove at night before sleeping. Please take aspirin 325mg twice daily for 30 days to prevent blood clots. Please follow up with [facility] and call with any questions or concerns, . Discharge Disposition: HOME WITH HOME HEALTH SERVICES
[2022-04-06 09:22] LABS: Basophils % (A) 0 %; Eosinophils % (A) 0 %; HCT 33.4 % (34.0-46.0); HGB 10.7 gm/dL (11.4-16.0); Hypochromasia Slight; Lymphocytes # (A) 3.1 k/uL (1.0-4.8); Lymphocytes % (A) 30 %; MCH 28.7 pg (25.0-35.0); MCHC 32.1 g/dL (31.0-37.0); MCV 89.5 fL (80.0-100.0); Mean Platelet Volume 9.4; Monocytes # (A) 0.7 k/uL (0-1.0); Monocytes % (A) 7 %; Neutrophils # (A) 6.2 k/uL (1.3-7.7); Neutrophils % (A) 61 %; Platelet Count 189 k/uL (150-450); RBC 3.73 m/uL (3.80-5.40); RDW 13.5 % (11.5-15.5); WBC 10.2 k/uL (3.8-10.6)
[2022-04-06] MEDS ORDERED: METOPROLOL SUCCINATE (ER) 25 MG TAB.ER.24H PO SCH (09:30)
[2022-04-06 09:32] LABS: African American GFR (CKD) >90 (>60 ml/min/1.73 sqM); Non-African American GFR(CKD) 82 (>60 ml/min/1.73 sqM)
[2022-04-06] MEDS: ASPIRIN 325 MG TAB PO SCH (11:11)
[2022-04-06 11:32] LABS: Glucose,Whole Blood 148 mg/dL (70-110)
[2022-04-06] MEDS ORDERED: FERROUS SULFATE 325 MG TAB PO SCH (17:30)
[2022-04-06] MEDS ORDERED: ATORVASTATIN 40 MG TAB PO SCH (21:00)
[2022-04-06] MEDS ORDERED: metFORMIN 500 MG TAB PO SCH (21:00)
== END 2022-04-06 13:26 | disposition home health service (06) ==
LOC: OR 05:34 → 4SSUR 08:45 → OR 04-06 13:26
PROVIDERS: ATTEND Orthopaedic Surgery
DX: M17.11 Unilateral primary osteoarthritis, right knee (principal); M25.761 Osteophyte, right knee; I10 Essential (primary) hypertension; E11.9 Type 2 diabetes mellitus without complications; E78.5 Hyperlipidemia, unspecified; Z85.3 Personal history of malignant neoplasm of breast; Z85.43 Personal history of malignant neoplasm of ovary; Z79.82 Long term (current) use of aspirin; Z79.899 Other long term (current) drug therapy; Z82.49 Family history of ischemic heart disease and other diseases of the circulatory system; Z83.3 Family history of diabetes mellitus; Z90.410 Acquired total absence of pancreas
CPT/HCPCS: 97116; 97161; 64999; 64448; 76942; 88305; 82565; 85025; 88311; 73560; 27447; C1713; C1776; J2250; J1100; J0690; J2405; J2795; J1170

== ENCOUNTER → 2023-08-17 | Outpatient (CLI) | payer MEDICARE ==
--- NOTE | 2023-08-17 11:28 | MM ---
Reason for Exam: Hx of breast cancer, mastectomy. Last mammogram was performed 1 year(s) and 1 month(s) ago. Patient History: Menarche at age 19. Patient has no children. Left ovary removed at age 42. Right ovary removed at age 42. Hysterectomy at age 42. Postmenopausal. Breast cancer, left, age 60. Ovarian cancer, age 42. Estrogen for 5 months starting at age 42. 2011, Mastectomy on the Left side. 05/2018, Excisional Biopsy on the Right side. Paternal aunt had breast cancer, age 50. Sister had breast cancer. Prior Study Comparison: 06/30/2020 Right Diagnostic Mammogram, [facility]. 07/29/2021 Right Diagnostic Mammogram, [facility]. 07/30/2022 Right MG 3D diag mammo w/cad RT, [facility]. Tissue Density: Right: The breasts are heterogeneously dense, which may obscure small masses. Findings: Analyzed By CAD. Postexcisional changes redemonstrated on the right. Area of oval asymmetric density lateral aspect at middle depth remains unchanged. There is subtle 6 mm nodularity inner anterior right breast and 7 mm superior right breast middle to posterior depth. The second in the is not clearly seen on additional views. Further ultrasound evaluation is recommended. Overall Assessment: Incomplete: need additional imaging evaluation, BI-RAD 0 Management: Diagnostic Breast Ultrasound of the right breast. Electronically signed and approved by: Sarah Aguirre M.D. Radiologist
--- NOTE | 2023-08-17 12:16 | USB ---
Reason for Exam: Additional evaluation requested from prior study. Patient History: Menarche at age 19. Patient has no children. Left ovary removed at age 42. Right ovary removed at age 42. Hysterectomy at age 42. Postmenopausal. Breast cancer, left, age 60. Ovarian cancer, age 42. Estrogen for 5 months starting at age 42. 2011, Mastectomy on the Left side. 05/2018, Excisional Biopsy on the Right side. Paternal aunt had breast cancer, age 50. Sister had breast cancer. Technique: Method: Targeted. Prior Study Comparison: 06/30/2020 Right Diagnostic Mammogram, [facility]. 07/29/2021 Right Diagnostic Mammogram, [facility]. 07/30/2022 Right MG 3D diag mammo w/cad RT, [facility]. Findings: The medial section of the breast of the right breast, the axilla of the right breast and the retroareolar of the right breast were scanned. Targeted ultrasound medial aspect of the right breast 1:00 to 5:00 scanning of the subareolar region and axilla. It is present throughout. A couple benign cysts are noted measuring up to 6 mm, located at 1:00 and 5:00. Possible mammographic correlate. No other solid or cystic lesion or axillary lymphadenopathy. Overall Assessment: Probably benign, BI-RAD 3 Management: Diagnostic Mammogram of the right breast in 6 months. A clinical breast exam by your physician is recommended on an annual basis and results should be correlated with mammographic findings. This exam should not preclude additional follow-up of suspicious palpable abnormalities. Results were given to the patient verbally at the time of exam. Electronically signed and approved by: Sarah Aguirre M.D. Radiologist
== END | disposition home or self-care (01) ==
LOC: RADMAMWWP 10:27
PROVIDERS: ATTEND Family Medicine
DX: Z08 Encounter for follow-up examination after completed treatment for malignant neoplasm (principal); N60.11 Diffuse cystic mastopathy of right breast; R92.331 Mammographic heterogeneous density, right breast; Z80.3 Family history of malignant neoplasm of breast; Z85.3 Personal history of malignant neoplasm of breast; Z78.0 Asymptomatic menopausal state; Z90.12 Acquired absence of left breast and nipple
CPT/HCPCS: 77065; 76642; G0279; 77061

== ENCOUNTER → 2024-02-29 | Outpatient (CLI) | payer MEDICARE ==
--- NOTE | 2024-02-29 10:58 | MM ---
Reason for Exam: Follow-up at short interval from prior study. Last screening mammogram was performed 6 month(s) ago. Patient History: Menarche at age 19. Patient has no children. Left ovary removed at age 42. Right ovary removed at age 42. Hysterectomy at age 42. Postmenopausal. Breast cancer, left, age 60. Ovarian cancer, age 42. Previous chest radiation therapy at age 60. Estrogen for 5 months starting at age 42. 2011, Mastectomy on the Left side. 05/2018, Excisional Biopsy on the Right side. Paternal aunt had breast cancer, age 50. Sister had breast cancer. Prior Study Comparison: 07/29/2021 Right Diagnostic Mammogram, [facility]. 07/30/2022 Right MG 3D diag mammo w/cad RT, [facility]. 08/17/2023 Right MG 3D diag mammo w/cad RT, [facility]. Tissue Density: Right: The breasts are heterogeneously dense, which may obscure small masses. Findings: Analyzed By CAD. Pattern appears stable. Multiple scattered benign-appearing calcifications are present within the right. Core marker is within the inferior breast. Previous nodularity within the right breast was not evident on the current exam No suspicious groups of microcalcifications, spiculated or lobular masses, architectural distortion or other secondary signs of malignancy are mammographically apparent. Overall Assessment: Benign, BI-RAD 2 Management: Screening Mammogram of the right breast in 6 months. A negative mammogram report should not preclude additional follow up of suspicious palpable abnormalities. Patient should continue monthly self breast exam. A clinical breast exam by your physician is recommended on an annual basis and results should be correlated with mammographic findings. Note on Kerline scores and lifetime risk: 1. A Kerline score greater than 3% is considered moderate risk. If this is the case, consider specialist referral to assess eligibility for a risk reducing agent. 2. If overall lifetime risk for the development of breast cancer is 20% or higher, the patient may qualify for future screening with alternating mammogram and breast MRI. [facility], , 02/29/2024 10:55 AM. Electronically signed and approved by: Vini Grove D.O. Radiologis
== END | disposition home or self-care (01) ==
LOC: RADMAMWWP 10:15
PROVIDERS: ATTEND Family Medicine
CPT/HCPCS: 77061; 77065

== ENCOUNTER → 2024-08-20 | Outpatient (CLI) | payer MEDICARE ==
[2024-08-20 15:07] LABS: ALT 27 U/L (8-44); AST 23 U/L (13-35); Chol/HDL Ratio 2.14 Ratio; LDL Cholesterol,Calculated 68.9 mg/dL (0.0-131.0); VLDL Calculation 10.44 mg/dL (5.00-40.00)
== END | disposition home or self-care (01) ==
LOC: LABWHC1 11:08
PROVIDERS: ATTEND Internal Medicine Cardiovascular Disease
DX: E78.2 Mixed hyperlipidemia (principal)
CPT/HCPCS: 36415; 80061; 84450; 84460

== ENCOUNTER → 2024-09-18 | Outpatient (CLI) | payer MEDICARE ==
--- NOTE | 2024-09-18 09:45 | US ---
EXAMINATION TYPE: US kidneys/renal and bladder DATE OF EXAM: 09/18/2024 COMPARISON: 09/18/2021 CLINICAL INDICATION: Female, 73 years old with history of N13.2 HYDRONEPHROSIS WITH RENAL AND URETERA L CALCU; Hydronephrosis with calculus. TECHNIQUE: Grayscale imaging of the bilateral kidneys and urinary bladder: FINDINGS: EXAM MEASUREMENTS: Right Kidney: 10.3 x 5.9 x 3.0 cm Left Kidney: 10.6 x 5.1 x 6.1 cm Automatic Profile Sander Operator notes: Patient was told not to drink water for exam and is aware the bladder is not evalu ated empty. Patient did not choose to drink water for bladder portion. Right Kidney: No hydronephrosis or masses seen Left Kidney: Round hypoechoic area seen at mid: 1.5 x 1.6 x 1.5 cm. Seen in retrospect, previously me asuring 1.2 cm. No hydronephrosis. Limited due to gas and rib shadow. Bladder: Bladder not distended, unable to evaluate. Bilateral Jets seen: No IMPRESSION: 1. No hydronephrosis. 2. A mid pole cortical lesion in the left kidney measuring 1.6 cm. Measured 1.2 cm back in 2021. Indo lent behavior favors a benign etiology, possible debris-filled cyst. Consider additional annual surve illance follow-up. 3. Unable to assess the bladder due to nondistention. [facility], , 09/18/2024 9:43 AM
== END | disposition home or self-care (01) ==
LOC: RADUSWWP 08:49
PROVIDERS: ATTEND Urology
DX: N13.2 Hydronephrosis with renal and ureteral calculous obstruction (principal); N28.89 Other specified disorders of kidney and ureter
CPT/HCPCS: 76770

== ENCOUNTER 2024-12-04 07:09 | Day surgery (SDC) | payer MEDICARE ==
[2024-11-30 12:58] VITALS: BMI 27.8
[~2024-12-04 07:09] MED LIST changes: -ACETAMINOPHEN TAB 500 MG TAB PO PRN; -GABAPENTIN 300 MG CAP PO PRN; +LIDOCAINE 1% (10MG/ML) FOR IV START INTRADERMA PRN; -MELOXICAM 7.5 MG TAB PO PRN; +ONDANSETRON 4 MG/2 ML VIAL IVP PRN; -TRANEXAMIC ACID IN NACL,ISO-OS 1,000 MG in SALINE 1 100ML.BAG IVPB PRN
[2024-12-04] MEDS: IV FLUID CONTINUATION 1,000 ML IV ONE (07:26)
[2024-12-04] MEDS: LACTATED RINGERS 1,000 ML IV SCH (07:45)
[2024-12-04 07:50] LABS: Glucose,Whole Blood 101 mg/dL (70-110)
[2024-12-04 07:52] VITALS: TEMP 98.3
[2024-12-04] MEDS ORDERED: PROPOFOL 10 MG/ML 20 ML VIAL IV ONE (08:10)
--- NOTE | 2024-12-04 08:13 | P.GSHP ---
History of Present Illness H&P Date: 12/04/24 Chief Complaint: Colon cancer screening 74-year-old female here for colonoscopy. Last colonoscopy 6 years ago. Patient has personal history of adenomatous colon polyps. Last colonoscopy normal. Personal history of breast cancer. No bowel complaints. No family history of colon cancer. Past Medical History Past Medical History: Cancer, Diabetes Mellitus, Hyperlipidemia, Hypertension Additional Past Medical History / Comment(s): hx. ovarian cancer early , left breast cancer 2011, hx. colon polyps History of Any Multi-Drug Resistant Organisms: None Reported Past Surgical History: Breast Surgery, Hysterectomy Additional Past Surgical History / Comment(s): left breast mastectomy, breast biopsies right, colonoscopy Past Anesthesia/Blood Transfusion Reactions: No Reported Reaction Smoking Status: Former smoker - Past Family History Mother Family Medical History: Cancer Additional Family Medical History / Comment(s): breast Father Family Medical History: Cancer Additional Family Medical History / Comment(s): lung Brother(s) Family Medical History: Cancer Additional Family Medical History / Comment(s): throat Sister(s) Family Medical History: Cancer Additional Family Medical History / Comment(s): breast Medications and Allergies Home Medications Medication Instructions Recorded Confirmed Type Aspirin 81 mg PO DAILY 01/18/19 12/04/24 History Multivit-Min/FA/Lycopen/Lutein 1 each PO DAILY 01/18/19 12/04/24 History [Centrum Silver Tablet] lisinopriL [Zestril] 20 mg PO DAILY 01/18/19 12/04/24 History metFORMIN HCL [Glucophage] 500 mg PO BID 01/18/19 12/04/24 History Atorvastatin [Lipitor] 40 mg PO HS 03/31/22 12/04/24 History amLODIPine BESYLATE 5 mg PO DAILY 11/30/24 12/04/24 History Allergies Allergy/AdvReac Type Severity Reaction Status Date / Time Sulfa (Sulfonamide Allergy Itching Verified 12/04/24 07:27 Antibiotics) Surgical - Exam Vital Signs Temp Pulse Resp BP Pulse Ox 98.3 F 84 16 162/83 100 12/04/24 07:30 12/04/24 07:30 12/04/24 07:30 12/04/24 07:30 12/04/24 07:30 Physical exam: General: Well-developed, well-nourished HEENT: Normocephalic, sclerae nonicteric Abdomen: Nontender, nondistended Extremities: No edema Neuro: Alert and oriented Assessment and Plan (1) Colon cancer screening Narrative/Plan: Will proceed with colonoscopy at this time. Current Visit: No Status: Acute Code(s): Z12.11 - ENCOUNTER FOR SCREENING FOR MALIGNANT NEOPLASM OF COLON SNOMED Code(s): 693838780
--- NOTE | 2024-12-04 08:37 | P.PCN ---
Date of Procedure: 12/04/24 Procedure(s) Performed: PREOPERATIVE DIAGNOSIS: Colon cancer screening with history of polyps POSTOPERATIVE DIAGNOSIS: Sigmoid colon polyp, rectal polyp, diverticulosis PROCEDURE: Colonoscopy with snare polypectomy ANESTHESIA: MAC SURGEON: Eliecer Rubio M.D. SPECIMENS: Polyps ENDOSCOPIC PROCEDURE: The patient was placed on the endoscopy table in the left decubitus position. The Olympus colonoscope was inserted into the anus and passed under direct visualization to the base of the cecum. The appendiceal orifice was visualized. From that point the scope was slowly withdrawn inspecting all surfaces carefully. There were no neoplastic inflammatory or polypoid lesions throughout the cecum, ascending, transverse, and descending colon. In the sigmoid colon a small polyp was removed using the snare with cautery technique. In the rectum another small polyp measuring about 7 mm in size was removed using the snare with cautery technique as well. Remainder of the rectum was normal. The patient had mild diverticulosis throughout the colon. Digital rectal examination was normal. The patient was taken to the recovery room in stable condition per anesthesia guidelines. RECOMMENDATIONS: Await biopsy results. Advise repeat colonoscopy 5 to 7 years.
[2024-12-04 08:59] VITALS: BP 113/65; PULSE 67; RESP 17
== END 2024-12-04 09:33 | disposition home or self-care (01) ==
LOC: ORWHC2ENDO 07:09
PROVIDERS: ATTEND Surgery
DX: Z12.11 Encounter for screening for malignant neoplasm of colon (principal); D3A.026 Benign carcinoid tumor of the rectum; D12.5 Benign neoplasm of sigmoid colon; E11.9 Type 2 diabetes mellitus without complications; E78.5 Hyperlipidemia, unspecified; I10 Essential (primary) hypertension; K57.30 Diverticulosis of large intestine without perforation or abscess without bleeding; Z79.84 Long term (current) use of oral hypoglycemic drugs; Z85.3 Personal history of malignant neoplasm of breast; Z85.43 Personal history of malignant neoplasm of ovary; Z86.0101 Personal history of adenomatous and serrated colon polyps; Z87.891 Personal history of nicotine dependence; Z88.1 Allergy status to other antibiotic agents; Z88.2 Allergy status to sulfonamides; Z90.710 Acquired absence of both cervix and uterus
CPT/HCPCS: 88305; 88342; 88341; 45385; J2704

== ENCOUNTER → 2025-01-03 | Outpatient (CLI) | payer MEDICARE ==
--- NOTE | 2025-01-03 21:57 | PE ---
EXAMINATION TYPE: PET CT fusion skull to thigh DATE OF EXAM: 01/03/2025 COMPARISON: NONE HISTORY: Carcinoid malignancy of the rectum. History of left breast cancer. TECHNIQUE: Following the intravenous administration of 6.19 mCi of Ga-68 DOTATATE, whole body images are performed from the skull base to the midthigh. Images are reviewed on the computer in the coron al, axial, and sagittal planes. Reconstructed rotating images are created on independent workstation and reviewed on the computer. A localization and attenuation correction CT is performed in conjunc tion with the PET scan. SCAN: Initial Scan FINDINGS: SKULL BASE AND NECK: Areas of are normal uptake involving pituitary and thyroid glands along with bi lateral parotid and submandibular glands is noted. No areas of suspicious abnormal uptake. CHEST, MEDIASTINUM, AND HILAR REGION: Left breast is surgically absent. No areas of suspicious uptake . ABDOMEN AND PELVIS: Expected uptake in liver and spleen along with bilateral kidneys. Nonspecific bow el uptake. No areas of suspicious abnormal uptake. OSSEOUS STRUCTURES: No areas of suspicious uptake. OTHER CT: Multinodular thyroid gland identified, advise thyroid ultrasound follow-up to further evalu ate and characterize if this is not known finding. Uterus is surgically absent. Disc space narrowing with vacuum disc phenomenon at the L4-L5 level. Distal colonic diverticula. IMPRESSION: No areas of suspicious abnormal uptake to suggest metastatic malignancy. [facility], , 01/03/2025 9:55 PM
== END | disposition home or self-care (01) ==
LOC: RADPETMAIN 14:45
PROVIDERS: ATTEND Internal Medicine Hematology & Oncology
DX: C7A.026 Malignant carcinoid tumor of the rectum (principal); Z85.3 Personal history of malignant neoplasm of breast
CPT/HCPCS: 78815; A9587